=== PATIENT | female | born 1970 | race Caucasian/White ===

== ENCOUNTER → 2017-06-24 17:55 | Outpatient (CLI) | payer BC ==
[2014-12-24 09:26] VITALS: BMI 48.9
[~2017-06-24 17:55] MED LIST: BACTRIM DS TABL1 TAB PO; BAYER CHEWABLE81 MG PO; GLUCOVANCE 5/501 TAB PO; HUMALOG 30100 UNITS/ SQ; LEVAQUIN500 MG PO; LOPRESSOR25 MG PO; NITROSTAT0.4 MG SL; NORCO 10/325 TA1 TA1 PO; PERCOCET 10/3251 TA1 PO; PLAVIX75 MG PO; PROZAC20 MG PO; SILVADENE20 GM TP; SYNTHROID150 MCG PO; SYNTHROID200 MC1 PO; VALIUM10 MG PO; VALIUM5 MG PO; ZESTRIL20 MG PO; ZESTRIL40 MG PO
== END | disposition home or self-care (01) ==
LOC: D.MAMMO
DX: Z12.31 Encounter for screening mammogram for malignant neoplasm of breast (principal)